=== PATIENT | male | born 1960 | race Two or more races ===

== ENCOUNTER 2023-02-07 06:32 | Day surgery (SDC) | payer BC ==
[2023-02-01 15:52] LABS: BASOPHILS % (AUTO) 0.6 % (0-1); EOSINOPHILS # (AUTO) 0.3 X10'3 (0-0.9); HEMATOCRIT 43.5 % (42.0-52.0); HEMOGLOBIN 14.7 g/dl (14.0-17.9); LYMPHOCYTES # (AUTO) 1.4 X10'3 (1.1-4.8); MEAN CORPUSCULAR HEMOGLOBIN 31.6 PG (27.0-31.0); MEAN CORPUSCULAR HGB CONC 33.8 g/dL (33.0-36.5); MEAN CORPUSCULAR VOLUME 93.5 FL (78-98); MEAN PLATELET VOLUME 6.1 FL (7.4-10.4); MONOCYTES # (AUTO) 0.7 X10'3 (0-0.9); MONOCYTES % (AUTO) 10.3 % (2-12); NEUTROPHILS # (AUTO) 4.7 X10'3 (1.8-7.7); NEUTROPHILS % (AUTO) 65.1 % (42-75); PLATELET COUNT 334 X10'3 (140-440); RED BLOOD COUNT 4.65 X10'6 (4.70-6.10); RED CELL DISTRIBUTION WIDTH 13.6 % (11.5-14.5); WHITE BLOOD COUNT 7.2 X10'3 (4.5-11.0)
[2023-02-01 16:00] LABS: ALANINE AMINOTRANSFERASE 41 U/L (12-78); ALBUMIN 3.7 G/DL (3.4-5.0); ALBUMIN/GLOBULIN RATIO 1.2 (1.1-1.5); ALKALINE PHOSPHATASE 112 IU/L (46-116); ANION GAP 8 (8-16); ASPARTATE AMINO TRANSFERASE 30 U/L (10-37); BILIRUBIN,TOTAL 0.6 MG/DL (0.1-1.0); BLOOD UREA NITROGEN 13 MG/DL (7-18); BUN/CREATININE RATIO 14.9 (10.0-20.0); CALCIUM 9.2 MG/DL (8.5-10.1); CHLORIDE 102 MMOL/L (99-107); CREATININE 0.87 MG/DL (0.60-1.10); GLUCOSE 123 MG/DL (70-104); POTASSIUM 4.3 MMOL/L (3.5-5.1); SODIUM 138 MMOL/L (135-145); TOTAL CARBON DIOXIDE 27.9 MMOL/L (24-32); TOTAL PROTEIN 6.9 G/DL (6.4-8.2); eGFR 90 ML/MIN
[2023-02-07] VITALS (11 sets, daily range): BP systolic 104–142; BP diastolic 62–77
[~2023-02-07] VITALS: Ht 175.3 cm; Wt 97.0 kg
[~2023-02-07 06:32] MED LIST: BUDE10.2; ESCI-8 PO; LISI20TA28 PO; TRAZ-256 PO; VITAMIN D; ZINC; cefazolin 2gm/D5W 100mL 100 ML IV ONE; famotidine 20mg tablet PO ONE; ringers solution, lacted 1,000 ML IV SCH
[2023-02-07] MEDS ORDERED: BUPIVAcaine/PF 2.5 mg/ml (0.25%) 30ml vial ONE ×2 (06:41→08:31)
[2023-02-07] MEDS ORDERED: ALBU8HFA PO (07:31)
[2023-02-07] MEDS ORDERED: LIDOcaine 1% (10mg/ml)w/preservative inj. 20ml MDV ONE (07:53)
[2023-02-07] MEDS ORDERED: sevoflurane 250ml liquid IH ONE (08:04)
[2023-02-07] MEDS ORDERED: fentaNYL/PF 50MCG/1 ML 2ML syringe ONE (08:06)
[2023-02-07] MEDS ORDERED: MIDAZolam 1 MG/ML 5ML VIAL ONE (08:07)
[2023-02-07] MEDS ORDERED: LIDOcaine 2% (20mg/ml) 5ml vial ONE (08:17)
[2023-02-07] MEDS ORDERED: propofol inj 20 ML IV ONE (08:17)
[2023-02-07] MEDS ORDERED: rocuronium 10mg/ml inj IV ONE ×3 (08:17→09:45)
[2023-02-07] MEDS ORDERED: dexamethasone sod phosphate 4mg/ml inj. ONE (08:18)
[2023-02-07] MEDS ORDERED: neostigmine methylsulfate 1 MG/ML 10ml vial ONE (08:19)
[2023-02-07] MEDS ORDERED: glycopyrrolate 0.2mg/ml inj ONE (08:19)
[2023-02-07] MEDS ORDERED: BUPIVACAINE liposomal/PF 13.3 MG/ML vial IM ONE (08:31)
[2023-02-07] MEDS ORDERED: ringers solution, lacted 1,000 ML IV SCH (08:50)
[2023-02-07] MEDS ORDERED: hydrALAZINE 20mg/ml inj. IV PRN (08:50)
[2023-02-07] MEDS ORDERED: morphine 2 MG/ML inj. syringe IV PRN (08:50)
[2023-02-07] MEDS ORDERED: fentaNYL/PF 50MCG/1 ML 2ML syringe IV PRN ×2 (08:50)
[2023-02-07] MEDS ORDERED: ondansetron/PF 4mg/2ml inj IV PRN (08:50)
[2023-02-07] MEDS ORDERED: labetalol 20mg/4ml (5mg/ml) syringe IV PRN (08:50)
[2023-02-07] MEDS ORDERED: morphine 4 MG/ML inj SYRINge IV PRN (08:50)
[2023-02-07] MEDS ORDERED: ondansetron/PF 4mg/2ml inj ONE (09:01)
--- NOTE | 2023-02-07 09:22 | NUR ---
Received from OR via dick to RR 6, accompanied by Anesthesiologist DR KEENAN and report given by Anesthesiolgist. PT PRESENTS WITH PIV 20G RIGHT HAND, ABD BINDER, SPO2 100% 6L MASK, LR RUNNING AT 100MLS/HR, VSS. PAIN 0/10 Addendum: 02/07/23 at 0930 by Daiana De La Garza RN, RN Amended: Links added.
[2023-02-07] MEDS ORDERED: oxyCODONE/APAP 5-325mg tablet PO PRN (09:35)
--- NOTE | 2023-02-07 10:42 | NUR ---
DC HOME: ALL DISCHARGE CRITERIA HAS BEEN MET. VSS, PAIN AT A TOLERABLE LEVEL, VOIDING AND ABLE TO SAFELY AMBULATE AND TRANSFER SELF. IV TAKEN OUT WITHOUT ANY COMPLICATIONS. ALL DISCHARGE INSTRUCTIONS COVERED WITH PATIENT AND ALL QUESTIONS ANSWERED. PATIENT TAKEN OUT VIA WHEELCHAIR TO PERSONAL VEHICLE WHERE FAMILY/FRIEND DROVE PATIENT HOME. Addendum: 02/07/23 at 1141 by Daiana De La Garza RN, RN Amended: Links added.
== END 2023-02-07 10:42 | disposition home or self-care (01) ==
LOC: PAS 06:32
PROVIDERS: ATTEND Surgery
DX: K42.9 Umbilical hernia without obstruction or gangrene (principal); I10 Essential (primary) hypertension; F41.9 Anxiety disorder, unspecified; F32.9 Major depressive disorder, single episode, unspecified; J44.9 Chronic obstructive pulmonary disease, unspecified; G47.30 Sleep apnea, unspecified; Z79.899 Other long term (current) drug therapy; Z98.890 Other specified postprocedural states; F17.220 Nicotine dependence, chewing tobacco, uncomplicated; Z72.89 Other problems related to lifestyle
CPT/HCPCS: 36415; 49591; 64488; 80053; 82948; 85025; 93005; C1781; C9290; J0690; J1100; J2250; J2405; J2704; J2710; J3010; J3490; J7030; J7120; S2900; Z7506; Z7508; Z7512; A4215; A4618

== ENCOUNTER 2023-12-07 16:15 | Emergency (ER) | payer BC, OTHER ==
[~2023-12-07] VITALS: Ht 175.3 cm; Wt 95.1 kg
[~2023-12-07 16:15] MED LIST changes: +ALBU8HFA PO; -cefazolin 2gm/D5W 100mL 100 ML IV ONE; -famotidine 20mg tablet PO ONE; -ringers solution, lacted 1,000 ML IV SCH
[2023-12-07] MEDS: LORazepam 2 mg/ml vial IV ONE (17:20)
[2023-12-07 17:27] VITALS: TEMP 97.7
[2023-12-07 18:00] LABS: BASOPHILS # (AUTO) 0.1 X10'3 (0-0.2); BASOPHILS % (AUTO) 1.2 % (0-1); EOSINOPHILS % (AUTO) 0.2 % (0-6); HEMOGLOBIN 16.3 g/dl (14.0-17.9); LYMPHOCYTES # (AUTO) 1.2 X10'3 (1.1-4.8); LYMPHOCYTES % (AUTO) 9.7 % (21-51); MEAN CORPUSCULAR HEMOGLOBIN 31.8 PG (27.0-31.0); MEAN CORPUSCULAR HGB CONC 33.9 g/dL (33.0-36.5); MEAN CORPUSCULAR VOLUME 93.7 FL (78-98); MEAN PLATELET VOLUME 6.2 FL (7.4-10.4); MONOCYTES # (AUTO) 0.8 X10'3 (0-0.9); MONOCYTES % (AUTO) 6.7 % (2-12); NEUTROPHILS # (AUTO) 9.8 X10'3 (1.8-7.7); NEUTROPHILS % (AUTO) 82.2 % (42-75); PLATELET COUNT 382 X10'3 (140-440); RED BLOOD COUNT 5.12 X10'6 (4.70-6.10); RED CELL DISTRIBUTION WIDTH 13.1 % (11.5-14.5)
[2023-12-07] MEDS: normal saline 1000ml 1,000 ML IV ONE (18:21)
[2023-12-07 18:35] LABS: BILIRUBIN,URINE MODERATE (Neg); CLARITY,URINE SLIGHTLY CLOUDY (Clear); COLOR,URINE AMBER (Yellow); GLUCOSE, URINE NEGATIVE (Neg); KETONES,URINE >=80 mg/dl (Neg); LEUKOCYTE ESTERASE ,URINE NEGATIVE (Neg); OCCULT BLOOD,URINE NEGATIVE (Neg); PROTEIN,URINE 100 mg/dl (Neg)
[2023-12-07 18:44] LABS: UA COLLECTION TYPE NON-SPECIFIED
[2023-12-07 18:46] LABS: URINE AMPHETAMINE SCREEN NEGATIVE (Neg); URINE BARBITUATE SCREEN NEGATIVE (Neg); URINE BENZODIAZEPINES SCREEN NEGATIVE (Neg); URINE CANNABINOID SCREEN NEGATIVE (Neg); URINE COCAINE SCREEN NEGATIVE (Neg); URINE METHADONE SCREEN NEGATIVE (Neg); URINE OPIATE SCREEN NEGATIVE (Neg); URINE PHENCYCLIDINE SCREEN NEGATIVE (Neg)
[2023-12-07 18:47] LABS: SQUAMOUS EPITHELIAL CELL,UR FEW /LPF (FEW)
[2023-12-07 18:48] LABS: BACTERIA,URINE 4+ /HPF (Neg); HYALINE CASTS >30 /LPF (NEGATIVE); RBC,URINE NONE SEEN /HPF (0-2); WBC,URINE 0-4 /HPF (0-4)
[2023-12-07 18:52] LABS: ALANINE AMINOTRANSFERASE 64 U/L (12-78); ALBUMIN/GLOBULIN RATIO 1.2 (1.1-1.5); ALKALINE PHOSPHATASE 172 IU/L (46-116); ANION GAP 14 (8-16); ASPARTATE AMINO TRANSFERASE 62 U/L (10-37); BILIRUBIN,TOTAL 1.5 MG/DL (0.1-1.0); BLOOD UREA NITROGEN 9 MG/DL (7-18); BUN/CREATININE RATIO 9.4 (10.0-20.0); CALCIUM 9.2 MG/DL (8.5-10.1); CHLORIDE 100 MMOL/L (99-107); CREATININE 0.96 MG/DL (0.60-1.10); ETHANOL < 10 MG/DL (<10); GLUCOSE 116 MG/DL (70-104); PRO BRAIN NATRIURETIC PEPTIDE 47 PG/ML (0-125); SODIUM 138 MMOL/L (135-145); TOTAL CARBON DIOXIDE 23.6 MMOL/L (24-32); TOTAL PROTEIN 7.4 G/DL (6.4-8.2); eCRCL 81 ML/MIN; eGFR 80 ML/MIN
[2023-12-07] MEDS: cloNIDine 0.1 mg tablet PO ONE ×2 (18:53→20:00)
[2023-12-07 18:54] LABS: NITRITES, URINE NEGATIVE (Neg)
[2023-12-07] MEDS ORDERED: ONDA4TAB12 PO (22:09)
[2023-12-07 22:20] VITALS: BP 150/90; PULSE 86; RESP 16; O2SAT 98
== END 2023-12-07 22:21 | disposition home or self-care (01) ==
LOC: ER 16:17
DX: F10.239 Alcohol dependence with withdrawal, unspecified (principal); Z20.822 Contact with and (suspected) exposure to COVID-19; R07.89 Other chest pain; R74.01 Elevation of levels of liver transaminase levels; Z79.899 Other long term (current) drug therapy; Y90.9 Presence of alcohol in blood, level not specified
CPT/HCPCS: 36415; 71045; 74176; 80053; 80305; 80320; 81001; 83605; 83880; 84145; 84484; 85025; 87040; 87088; 87811; 93005; 96361; 96374; 99285; J2060; J7030